=== PATIENT | male | born 1970 | race Caucasian/White ===

== ENCOUNTER 2024-02-18 01:55 | Emergency (ER) | payer SELFPAY ==
[2024-02-18 02:04] VITALS: BP 129/89; PULSE 89; RESP 20; TEMP 98.2; BMI 23.6
== END 2024-02-18 02:40 | disposition home or self-care (01) ==
LOC: FER 01:55
DX: S81.801A Unspecified open wound, right lower leg, initial encounter (principal); W19.XXXA Unspecified fall, initial encounter
CPT/HCPCS: 99283-25